=== PATIENT | male | born 1935 | race Caucasian/White ===

== ENCOUNTER 2017-06-11 10:16 | Emergency (ER) | payer MEDICARE, OTHER ==
[~2017-06-11] VITALS: Ht 180.3 cm; Wt 122.0 kg
[~2017-06-11 10:16] MED LIST: ADLT ASA LOW81 MG PO; CEPHALEXIN500 MG PO; CIPROFLOXACN250 MG PO; COZAAR50 MG PO; DILAUDID 2MG2 MG/TA1 PO; DONEPEZIL5 MG PO; DOXYCYCL HYC100 MG PO; FLOMAX0.4 M1 PO; LEVAQUIN750 MG PO; LIPITOR20 MG PO; LOSARTAN POT50 MG PO; METO50TA52 PO; NAMENDA XR28 MG PO; NORCO1 TA1 PO; PERCOCET 5/321 COMBO PO; PRAVASTATIN SOD20 MG PO; PRILOSEC20 MG PO; PRILOSEC20 MG/CAP PO; PROCTOFOAM HC10 GM RE; TOPROL XL25 MG PO; TRAMADL/APAP PO; UNKNOWN MEDS; XARELTO20 MG PO; [UNRECOGNIZED DRUG - CODE] TD
[2017-06-11] MEDS ORDERED: EC-NAPROSYN500 MG PO (12:09)
[2017-06-11 12:10] VITALS: BP 135/77
== END 2017-06-11 12:10 | disposition home or self-care (01) ==
LOC: ED 10:16
DX: S23.3XXA Sprain of ligaments of thoracic spine, initial encounter (principal); M54.6 Pain in thoracic spine; W07.XXXA Fall from chair, initial encounter; Y93.89 Activity, other specified; Y92.009 Unspecified place in unspecified non-institutional (private) residence as the place of occurrence of the external cause

== ENCOUNTER 2018-04-29 07:10 | Emergency (ER) | payer MEDICARE, OTHER ==
[~2018-04-29] VITALS: Ht 180.3 cm; Wt 129.0 kg
[~2018-04-29 07:10] MED LIST changes: +EC-NAPROSYN500 MG PO
[2018-04-29] MEDS ORDERED: MAXZIDE-2537.5 MG/TA PO (07:19)
[2018-04-29 07:52] VITALS: BP 119/58
== END 2018-04-29 08:06 | disposition home or self-care (01) ==
LOC: ED 07:10
DX: Z04.3 Encounter for examination and observation following other accident (principal); W06.XXXA Fall from bed, initial encounter; Y93.89 Activity, other specified; Y92.003 Bedroom of unspecified non-institutional (private) residence as the place of occurrence of the external cause

== ENCOUNTER 2019-10-22 15:10 | Inpatient (IN) | payer MEDICARE, OTHER ==
[~2019-10-22] VITALS: Ht 180.3 cm; Wt 120.0 kg
[~2019-10-22 15:10] MED LIST changes: +B-121000 MC1 PO; +MAXZIDE-2537.5 MG/TA PO
--- NOTE | 2019-10-22 15:50 | NUR ---
PT TO ROOM VIA WHEELCHAIR.
--- NOTE | 2019-10-22 16:30 | NUR ---
PT RESTING QUIETLY WITH DAUGHTER AT BEDSIDE.
[2019-10-22 16:39] LABS: HEMATOCRIT 42.5 % (39.0-50.0); IMMATURE GRANULOCYTES 0.9 % (0.0-5.0); MEAN CELL VOLUME 96.4 fL CALC (80.0-100.0); MEAN CORPUSCULAR HGB 31.7 pG CALC (26.0-32.0); MEAN CORPUSCULAR HGB CONC 32.9 g/dL CAL (32.0-36.0); NEUT# 12.08 thou/uL (1.82-7.42); RED BLOOD COUNT 4.41 mill/uL (4.70-6.10); RED CELL DISTRI WIDTH 13.3 % (11.5-15.5)
[2019-10-22 16:54] LABS: URINE BLOOD DIPSTICK LARGE (NEGATIVE); URINE GLUCOSE - DIPSTICK NEGATIVE (NEGATIVE); URINE KETONE TRACE mg/dL (NEGATIVE); URINE LEUK ESTERASE NEGATIVE (NEGATIVE); URINE NITRITE - DIPSTICK NEGATIVE (Negative); URINE PROTEIN - DIPSTICK 30 mg/dL (NEG-TRACE); URINE UROBILINOGEN - DIPSTICK 0.2 E.U./dL (0.2)
[2019-10-22 16:55] LABS: URINE BILIRUBIN - DIPSTICK NEGATIVE (NEGATIVE); URINE COLOR DK. YELLOW
[2019-10-22 16:55] LABS: ALBUMIN 3.6 g/dL (3.2-5.0); BILIRUBIN, TOTAL 1.5 mg/dL (0.0-1.4); CREATININE 3.8 mg/dL (0.7-1.3); POTASSIUM 4.4 mmol/l (3.5-5.1); TOTAL PROTEIN 6.7 g/dL (6.3-8.2)
[2019-10-22 17:00] LABS: URINE RBC 25-50 RBC/hpf (0-5)
--- NOTE | 2019-10-22 17:31 | NUR ---
DAUGHTER LEAVING, ADVISED PT WILL BE ADMITTED AFTER RESULTS COME BACK
[2019-10-22 19:14] LABS: ACT PARTIAL THROMBO TIME 30.6 SECONDS (20.0-32.5); INTERNATIONAL NORMALIZED RATIO 1.1 RATIO (0.7-1.3); PROTHROMBIN TIME 11.5 SECONDS (9.0-12.5)
--- NOTE | 2019-10-22 19:38 | NUR ---
PT RESTING QUIETLY ON STRETCHER, ADVISED OF BUSY ER STATUS AND PT WOULD BE GOING TO ROOM SOON POSSIBLE. WARM BLANKET GIVEN PER REQUEST
--- NOTE | 2019-10-22 20:06 | NUR ---
PT REPORT GIVEN AND PT PACKAGED UP AND TAKEN TO FLOOR PER STRETCHER
[2019-10-22 20:30] VITALS: BP 141/78
--- NOTE | 2019-10-22 20:30 | NUR ---
PT ARRIVED TO THE MED SURG UNIT VIA STRETCHER ACCOMOMPANIED BY ED NURSE. PT IS UNABLE TO AMBULATE OR MOVE FROM STRETCHER TO BED. SLIDER HAD TO BE USED TO TRANSFER. PT APPEARS TO BE STABLE AT THIS TIME. PT CLEANED OF INCONTINENT STOOL SCANT AMOUNT. LIS URINE IN ANDRES CATH DRAINING TO GRAVITY. LEG STRAP IN PLACE TO RUE
--- NOTE | 2019-10-22 22:42 | NUR ---
PT SET BED ALARM OFF, HE NEEDED REPOSITIONED IN BED/PROVIDED. PT APPEARS CONFUSED TO SITUATION/CIRCUMSTANCE. CALMLY REORIENTED.
--- NOTE | 2019-10-23 02:20 | NUR ---
PT SLEEPING SOUNDLY, BLANKETS ARE THROWN ON FLOOR, PT PROVIDED FRESH LINENS. CALL LIGHT AT SIDE. BED ALARM ON
--- NOTE | 2019-10-23 04:12 | NUR ---
PT SLEEPING SOUNDLY, BED LINENS BACK ON FLOOR. BED ALARM IS ON AND CALL LIGHT W/IN REACH. DOOR LEFT OPEN FOR OBSERVATION.
[2019-10-23 04:58] VITALS: BP 159/66
[2019-10-23 05:06] LABS: HEMOGLOBIN 13.4 g/dl (14.0-18.0); IMMATURE GRANULOCYTES 0.7 % (0.0-5.0); MEAN CELL VOLUME 97.9 fL CALC (80.0-100.0); MEAN CORPUSCULAR HGB 30.5 pG CALC (26.0-32.0); MEAN CORPUSCULAR HGB CONC 31.2 g/dL CAL (32.0-36.0); NEUT# 7.56 thou/uL (1.82-7.42); RED BLOOD COUNT 4.39 mill/uL (4.70-6.10); RED CELL DISTRI WIDTH 13.4 % (11.5-15.5)
[2019-10-23 05:24] LABS: POTASSIUM 4.7 mmol/l (3.5-5.1)
[2019-10-23 07:46] VITALS: BP 149/66
--- NOTE | 2019-10-23 09:50 | NUR ---
URINE SAMPLE OBTAINED AND TAKEN TO LAB.
--- NOTE | 2019-10-23 10:15 | NUR ---
PT SLEEPING IN BED, AWAKENED TO COMPLETE ASSESSMENT. PT ALERT TO SELF AND PLACE, UNABLE TO RECALL OR REASONING WHY HE WAS HERE. ORIENTED PT TO SELF AND TIME. ANDRES CATHETER IN PLACE DRAINING VIA GRAVITY WITH LIS COLOR URINE NOTED. PT DENIES ANY PAIN OR NEEDS AT THIS TIME. ASSESSMENT COMPLETED. DISCUSSED POC, REINFORCEMENT NEEDED DUE TO COGNITIVE BARRIERS. CALL LIGHT IN REACH. BED ALARM IN PLACE FOR SAFETY AND FALL PERCAUTIONS. CONTINUE TO MONITOR
[2019-10-23 12:44] VITALS: BP 140/69
--- NOTE | 2019-10-23 14:55 | NUR ---
SPOKE TO PTS DAUGHTER STEPHEN, INFORMED STEPHEN THAT WE NEEDED HIS [facility] HOME MEDICATION TO BE BROUGHT IN. PER STEPHEN THEY WILL NOT BE ABLE TO BRING THAT IN TODAY, BUT THEY CAN BRING IT IN TOMORROW MORNING. INSTRUCTIONS ON DROPOFF WERE GIVEN. STEPHEN VERBALIZED UNDERSTANDING.
--- NOTE | 2019-10-23 15:26 | NUR ---
Patient was screened for rehab inntervention today. He would benefit from PT to work on mobilization and gait OT for endurance and self care ST for cognition and swallowing evaluation We will proceed with the above evaluations per medical
[2019-10-23 16:47] VITALS: BP 135/47
--- NOTE | 2019-10-23 17:50 | NUR ---
PT ATTEMPTED TO GET OUT OF BED, REORIENTED PT AND ASSISTED HIM BACK TO BED.
[2019-10-23 20:48] VITALS: BP 134/76
--- NOTE | 2019-10-23 21:06 | NUR ---
PT RESTING IN BED. RESPIRATIONS EVEN AND UNLABORED ON RA. LUNGS SOUND CLEAR. PEDAL PULSES STRONG. PT DENIES ANY PAIN OR DICOMFORT AT THIS TIME. BED ALARM ACTIVE FOR PT SAFETY, WILL CONTINUE TO MONITOR.
--- NOTE | 2019-10-24 00:04 | NUR ---
PT KICKING LEGS OVER THE SIDE OF THE BED. RESTLESS AND SOB. O2 APLIED PT REPOSITIONED IN BED, AND ATTEMPS TOP REORINET MADE. BED ALARM ACTIVE FOR PT SAFETY. WILL CONTINUE TO MONITOR.
[2019-10-24 03:51] VITALS: BP 132/63
--- NOTE | 2019-10-24 04:01 | NUR ---
PT RESTING IN BED, PT SITTING UP IN BED, PT RESTLESS. BED ALARM ACTIVE FOR PT SAFETY. WILL CONTINUE TO MONITOR.
[2019-10-24 07:18] VITALS: BP 113/70
--- NOTE | 2019-10-24 07:18 | NUR ---
PT SITTING IN BED. ALERT TO NAME , REORIENTED PT TO PLACE , TIME AND . O2 VIA NC @2L IN PLACE. PT ATTEMPTING TO REMOVE IV, EXPLAINED TO PT THAT HE HAD TO KEEP IT ON, TUBULAR NET MESH IN PLACE TO PROTECT IV. ANDRES CATHETER DRAINING VIA GRAVITY WITH LIS COLOR URINE NOTED. EDEMA NOTED TO BLE, CLEAR BREATH SOUNDS UPON AUSCULTATION BUT EXCERTIONAL SOB CAUSES AUDIBLE WHEEZING. BED ALARM IN PLACE FOR THE SAFETY OF PT. CALL LIGHT IN REACH, CONTINUE TO MONITOR.
--- NOTE | 2019-10-24 08:43 | NUR ---
SPOKE TO PTS DAUGHTER NANCY. DIMAS TO BE DROPPED OFF LATER THIS MORNING. DESCRIBED PTS BEHVAIOR THAT WAS GIVEN IN REPORT. DAUGHTER STATES THAT THAT IS HIS NORMAL BEHAVIOR. PT TENDS TO WANDER AT NIGHT AND BE RESTLESS AT HOME. ASKED ABOUT REHAB PLACEMENT, EXPLAINED THAT THE PHYSICIAN WILL BE MADE AWARE TO CONSIDER.
--- NOTE | 2019-10-24 13:07 | NUR ---
ORDERS REC FOR ATIVAN 0.5 MG Q8 PRN FOR AGITATION AND ANXIETY REC FROM DR CASTANEDA. ORDERS FAXED TO PHARMACY
--- NOTE | 2019-10-24 14:02 | NUR ---
PT CURRENTLY ANXIOUS WANTING TO "LEAVE". STATES THAT HE NEEDS TO "GET OUT OF HERE". REORIENTED PT. BED ALARM IN PLACE. PT CURRENTLY SITTING ON THE SIDE OF THE BED WITH O2 @2L IN PLACE.
--- NOTE | 2019-10-24 15:07 | NUR ---
ORDERS FOR ATIVAN 0.5 MG PO Q8 PRN FOR ANXIETY AND AGITATION REC FROM DR CASTANEDA. ORDERS FAXED TO PHARMACY.
--- NOTE | 2019-10-24 15:25 | NUR ---
PT CURRENTLY CALM LAYING ON THE SIDE OF THE BED COUNTRY MUSIC IS PLAYING. NO DISTRESS NOTED. CONTINUE TO MONITOR
[2019-10-24 15:34] LABS: ANION GAP 12 (6-22 (CALC)); BUN 20 mg/dL (8-23); BUN/CREATININE RATIO 20 (12-20 (CALC)); CARBON DIOXIDE 18 mmol/l (22-30); CHLORIDE 113 mmol/l (95-108); SODIUM 139 mmol/l (137-146)
[2019-10-24 15:39] LABS: GFR > 60 ML/MIN (>=60 (CALC)); GFR FOR AFR.AMER. > 60 ML/MIN (>=60 (CALC))
[2019-10-24 16:27] VITALS: BP 134/40
--- NOTE | 2019-10-24 18:13 | NUR ---
ATIVAN PO GIVEN, PT EXHIBITING SIGNS OF AGITATION. BED ALARM IN PLACE. CONTINUE TO MONITOR
[2019-10-24 19:01] VITALS: BP 128/67
--- NOTE | 2019-10-24 20:45 | NUR ---
IV site TO L AC pulled out by patient, cath intact. No edema , no redness, voices no discomfort. Peripheral IV started. IV access obtained with #22 AutoGuard at Left Forearm with 1 IV stick attempts. Flushes easily with good blood return.
--- NOTE | 2019-10-24 20:45 | NUR ---
PHYSICAL ASSESMENT COMPLETE. VS TAKEN BY FISH CHECKER @ 1940 ASSESSED, TELEMETRY READING FOR 1999 FROM Gamaliel TINEO LPN/MANAGER SOCIAL WORK ASSESSED. PT HEMODYNAMICALLY STABLE. PLAN OF CARE REVIEWED W/ PT. PT VERBALIZES UNDERSTANDING AND DENIES QUESTIONS @ THIS TIME. PT WILL NEED FREQUENT RE-ORIENTATION TO PLAN OF CARE SECONDARY TO CHRONIC COGNITIVE LIMITATIONS. PT DENIES FURTHER NEEDS @ THIS TIME. CALL SPANN WITHIN REACH, AGREES TO CALL PRN. ITEMS WITHIN REACH. BED LOCKED IN LOW POSITION W/ BEDRAILS UP X2. WILL CON'T TO MONITOR.
--- NOTE | 2019-10-24 23:08 | NUR ---
PARTIAL BED BATH AND FACIAL SHAVE PROVIDED BY Mario EDMONDSON CNA
--- NOTE | 2019-10-25 01:01 | NUR ---
PT SITTING UP IN BED, WATCHING TV. PT IS CALM AND RESTING, APPEARS COMFORTABLE AND NO APPARENTS DISTRESS.
[2019-10-25 04:57] VITALS: BP 158/70
[2019-10-25 05:37] LABS: HEMATOCRIT 39.3 % (39.0-50.0); HEMOGLOBIN 12.4 g/dl (14.0-18.0); MEAN CORPUSCULAR HGB 30.9 pG CALC (26.0-32.0); MEAN CORPUSCULAR HGB CONC 31.6 g/dL CAL (32.0-36.0); RED BLOOD COUNT 4.01 mill/uL (4.70-6.10)
[2019-10-25 05:53] LABS: ALBUMIN 2.9 g/dL (3.2-5.0); ALKALINE PHOSPHATASE 70 u/l (38-126); BUN 15 mg/dL (8-23); BUN/CREATININE RATIO 15 (12-20 (CALC)); CHLORIDE 108 mmol/l (95-108); GFR > 60 ML/MIN (>=60 (CALC)); GFR FOR AFR.AMER. > 60 ML/MIN (>=60 (CALC)); POTASSIUM 4.1 mmol/l (3.5-5.1); SGOT/AST 33 u/l (19-48); SODIUM 139 mmol/l (137-146); TOTAL PROTEIN 5.6 g/dL (6.3-8.2)
[2019-10-25 05:54] LABS: ANION GAP 10 (6-22 (CALC)); BILIRUBIN, TOTAL 0.7 mg/dL (0.0-1.4); CARBON DIOXIDE 25 mmol/l (22-30)
[2019-10-25 08:25] VITALS: BP 147/70
--- NOTE | 2019-10-25 08:25 | NUR ---
ASSESSMENT IS COMPLETED: IV SITE IS FREE FROM REDNESS OR EDEMA. HR IS REG,PULSES ARE STRONG X4, ABD IS SOFT WITH ACTIVE BS. BREATH SOUNDS ARE CLEAR WITH AUDIBLE WHEEZING WHIE AT REST. ANDRES DRAINING YELLOW URINE. CONTINUE TO OBSERVE AND MONITOR.
--- NOTE | 2019-10-25 12:45 | NUR ---
PT IS RELAXING IN BED WITH NO DISTRESS NOTED. IV SITE IS FREE FROM REDNES OR EDEMA.
--- NOTE | 2019-10-25 13:08 | NUR ---
SWABBED PT NOSE FOR TESTING , PT STATED" I DIDN'T REALIZE MY NOSE WAS THAT BIG". TOOK TEST TO LAB.
[2019-10-25 15:03] VITALS: BP 134/80
--- NOTE | 2019-10-25 16:36 | NUR ---
PT CONTINUES TO RELAX WITH NO DISTRESS NOTED. IV SITE IS FREE FROM REDNESS OR EDEMA.
[2019-10-25 19:57] VITALS: BP 118/81
--- NOTE | 2019-10-25 20:55 | NUR ---
PHYSICAL ASSESMENT COMPLETE. VS TAKEN BY MAIN LINE STATION ENGINEER @ 1956 ASSESSED, TELEMETRY PT HEMODYNAMICALLY STABLE. PLAN OF CARE REVIEWED W/ PT. PT VERBALIZES UNDERSTANDING AND DENIES QUESTIONS @ THIS TIME. PT WILL NEED FREQUENT RE-ORIENTATION TO PLAN OF CARE SECONDARY TO CHRONIC COGNITIVE LIMITATIONS. PT INCONTINENT OF SMALL AMOUNT STOOL, PT GIVEN PARTIAL BED BATH AND PARTIAL LINEN CHANGE W/ ASSISTANCE OF Manjinder THOMPSON CNA. PT POSITIONED FOR COMFORT. PT DENIES FURTHER NEEDS @ THIS TIME. CALL SPANN WITHIN REACH, AGREES TO CALL PRN. ITEMS WITHIN REACH. BED LOCKED IN LOW POSITION W/ BEDRAILS UP X2. WILL CON'T TO MONITOR.
--- NOTE | 2019-10-26 00:44 | NUR ---
PT APPEARS TO BE SLEEPING COMFORTABLY, NO APPARENT DISTRESS, RESPIRATIONS REGULAR AND UNLABORED. CALL SPANN REMAINS WITHIN REACH. BED REMAINS LOCKED IN LOW POSITION W/ BEDRAILS UP X2. ITEMS WITHIN REACH. WILL CONT' TO MONITOR.
--- NOTE | 2019-10-26 04:48 | NUR ---
IV site pulled out by patient, cath intact. No edema , no redness, voices no discomfort. pt incontinent of small soft stool. bed bath and linen change completed by Milad Conley CNA. Assisted in pulling pt up in bed and positioning for comfort. call connor within reach, agrees to call prn. bed locked in low position w/ bedrails up x2. items within reach.
[2019-10-26 04:52] VITALS: BP 94/49
[2019-10-26 07:55] VITALS: BP 124/84
--- NOTE | 2019-10-26 07:55 | NUR ---
ASSESSMENT IS COMPLTED: IV SITE IS FREE FROM REDNESS OR EDEMA. HR IS REG,PULSES ARE STRONG X4 , ABD IS SOFT WITH ACTIVE BS. BREATH SOUNDS ARE CLEAR,BILATERAL. TELE MONITOR IN PLACE. ANDRES DRAINING LIS URINE.
--- NOTE | 2019-10-26 08:41 | NUR ---
PT note 10/25/19 Patient seen for in room ambualtion with FWW and Mod assist of 1. He is limited by dyspnea and weakness. His vitals remained stable and he required Mod assist for maintaining his balance. His Am Pac is 13 and he would do well in SNF for short term rehab to regain his baseline functional level
--- NOTE | 2019-10-26 10:00 | NUR ---
PT NEEDED TO USE THE BATHROOM. ABLE TO ASSIST WITH 2 PEOPLE TO STAND UP AND PLACE A BED [place] UNDER HIM. HAD A SMEAR OF STOOL.
--- NOTE | 2019-10-26 11:08 | NUR ---
SPOKEW ITH PT'S DAUGHTER RE: WHAT WAS GOING ON. WILL CALL THIS PM TO UPDATE HER ON THE STATUS. EXPLAIEND THAT HE WAS ACCEPTED TO [facility]. SHE INQUIRED IF THEY COULD VISIT . EXPLAINED NOT SURE OF WHAT THEIR STATUS IS NOT WANTING TO SAY YES OR NO.
--- NOTE | 2019-10-26 12:30 | NUR ---
PT IS RELAXING IN BED WITH NO DISTRESS NOTED. IV SITE IS FREE FROM REDNESS OR EDEMA. CONTINUE TO OSBERVE AND MONITOR.
[2019-10-26 15:36] VITALS: BP 141/87
--- NOTE | 2019-10-26 16:30 | NUR ---
PT PLACED SELF BACK INTO BED WAS SITTING ON THE SIDE OF THE BED, IV SITE IS FREE FROM REDNESS OR EDEMA.
--- NOTE | 2019-10-26 18:38 | NUR ---
PT ASSISTED TO STAND UP AND USED THE BSC WITH 2 PERSON ASSIST. HAD A BM. ANDRES INTACT. CONTINUE TO OBSERVE AND MONITOR.
--- NOTE | 2019-10-26 18:40 | NUR ---
INFORMED FAMILY OF WHAT WAS GOING ON STILL WAITING ON THE RESULTS. AND WAS ACCEPTED AT [facility].
[2019-10-26 19:01] VITALS: BP 125/66
--- NOTE | 2019-10-26 20:45 | NUR ---
PHYSICAL ASSESMENT COMPLETE. VS TAKEN BY AGENT TICKETING GATE @ 1956 ASSESSED, PT HEMODYNAMICALLY STABLE. PLAN OF CARE REVIEWED W/ PT. PT VERBALIZES UNDERSTANDING AND DENIES QUESTIONS @ THIS TIME. PT POSITIONED FOR COMFORT DENIES FURTHER NEEDS @ THIS TIME. CALL SPANN WITHIN REACH, AGREES TO CALL PRN. ITEMS WITHIN REACH. BED LOCKED IN LOW POSITION W/ BEDRAILS UP X2. WILL CON'T TO MONITOR.
--- NOTE | 2019-10-26 23:00 | NUR ---
ANDRES WITH <50ML OUTPUT @ THIS TIME. TUBING IS UNKINK, UNOBSTRUCTED AND SECURE. NO DISCOMFORT OR FULLNESS FELT UN PALPATION OF BLADDER. PT IN NO DISTRESS. LUNGS CLAER AND DIMINISHED, RESPIRATIONS UNLABORED. WILL CON'T TO MONITOR.
--- NOTE | 2019-10-27 02:00 | NUR ---
DEFLATED BALLOON, REPOSITIONED ANDRES AND FLUSHED WITH 20ML NS, THEN BALLOON RE-INFLATED. FLOW OF PALE YELLOW URINE BEGAN IMMEDIATELY. TOTAL OUTPUT 1400ML CLEAR PALE YELLOW URINE. ANDRES SECURED, UNKINKED, UNOBSTRUCTED. WILL CON'T TO MONITOR.
[2019-10-27 04:02] VITALS: BP 164/71
--- NOTE | 2019-10-27 05:30 | NUR ---
PHYSICAL ASSESMENT REMAINS UNCHANGED FROM START OF SHIFT, DMITRY REMAINS PATENT. VS TAKEN BY SUSANNAH @ 0402 ASSESSED. PT REMAINS HEMODYNAMICALLY STABLE. RESTING IN BED COMFORTABLY @ THIS TIME. DENIES NEEDS @ THIS TIME. ITEMS WITHIN REACH. BED REMAINS LOCKED IN LOW POSITION W/ BED RAILS UPX2. CALL SPANN REMAINS WITHIN REACH. PT AGREES TO CALL PRN.
[2019-10-27 08:00] VITALS: BP 148/82
--- NOTE | 2019-10-27 13:00 | NUR ---
NADRES DRAINS LIS URINE WITHOUT ANY FURTHER BLOOD. PT SEEN BY DR BROWN, NO NEW ORDERS RECEIVED.
--- NOTE | 2019-10-27 15:11 | NUR ---
PT SEEN AWAKE, ALERT, ORIENTED X 2-3. LUNGS CLEAR, 2 LPM. SOME BLOOD ON GOWN TRACED BACK TO PENIS, NO FURTHER BLEEDING WHEN CLEANED. ANDRES WITH SMALL AMOUNT OF BLOOD, MOSTLY LIS. NO PAIN, NO DISTRESS.
[2019-10-27 15:26] VITALS: BP 141/77
--- NOTE | 2019-10-27 16:47 | NUR ---
PT OOB IN CHAIR WITH ASSIST FROM CNAs, NO DISTRESS, NO COMPLAINTS.
[2019-10-28 04:30] VITALS: BP 131/81
[2019-10-28 08:00] VITALS: BP 125/80
--- NOTE | 2019-10-28 08:37 | NUR ---
PT AT REST IN THE BED, NO COMPLAINTS. PT REPOSITIONED IN BED FOR BREAKFAST, IS EATING NOW. ANDRES DRAINS LIS URINE, NO CLOTS NOTED.
[2019-10-28 09:17] VITALS: BP 125/80
--- NOTE | 2019-10-28 10:17 | NUR ---
PT note Patient is seen for gait training. He has already gotten OOB with [facility]. He is able to increase his ambulation distance with FWW to 40 feet with vitals stable and much less dyspnea. His am pac has improved to 13 and he would benefit from sort term rehab to reach his previous baseline
[2019-10-28] MEDS ORDERED: TAMSULOSIN HCL0.4 MG PO (10:53)
[2019-10-28] MEDS ORDERED: AMLODIPINE BESYL5 MG PO (10:53)
[2019-10-28] MEDS ORDERED: KEFLEX500 M1 PO (10:54)
--- NOTE | 2019-10-28 12:00 | NUR ---
PT AWARE OF PENDING TRANSFER TO [facility]. [facility] WORKING ON HIS FILE, PROBABLE EARLY AFTERNOON DISCHARGE.
--- NOTE | 2019-10-28 14:25 | NUR ---
PT LEAVES AT THIS TIME FOR [facility]IA [facility] TRANSPORT. REPORT WAS CALLED TO ASHLEY AT [phone]. PT LEAVES IN STABLE CONDITION, ANDRES CATHETER IN PLACE, NO IV.
[2019-10-28 15:18] VITALS: BP 94/46
== END 2019-10-28 14:13 | DRG 684 ==
LOC: ED 15:10 → ED-I 18:30 → ED 18:58 → MS2 18:59 → ED-I 18:59 → MS2 19:21
PROVIDERS: Emergency Medicine; Family Medicine; Internal Medicine; Nurse Practitioner Family; ADMIT Internal Medicine; ATTEND Internal Medicine
PROC: 0T9B70Z Drainage of Bladder with Drainage Device, Via Natural or Artificial Opening (ICD-10-PCS; principal; 2019-10-22)
DX: N17.9 Acute kidney failure, unspecified (principal); R33.9 Retention of urine, unspecified; I10 Essential (primary) hypertension; I25.10 Atherosclerotic heart disease of native coronary artery without angina pectoris; G30.9 Alzheimer's disease, unspecified; F02.80 Dementia in other diseases classified elsewhere, unspecified severity, without behavioral disturbance, psychotic disturbance, mood disturbance, and anxiety; E78.5 Hyperlipidemia, unspecified; R31.9 Hematuria, unspecified; I25.2 Old myocardial infarction; Z95.0 Presence of cardiac pacemaker; Z20.828 Contact with and (suspected) exposure to other viral communicable diseases